=== PATIENT | female | born 1955 | race Caucasian/White ===

== ENCOUNTER 2024-02-07 06:43 | Day surgery (SDC) | payer MEDICARE, BC, SELFPAY ==
[2024-02-06 15:44] LABS: Anion Gap 3 (7-16); BUN/Creatinine Ratio 20 Ratio (12-20); Blood Urea Nitrogen 16 mg/dL (9-23); Calcium 9.2 mg/dL (8.3-10.6); Carbon Dioxide 31.7 mMol/L (20.0-31.0); Chloride 105 mMol/L (98-107); Creatinine (Component) 0.8 mg/dL (0.6-1.3); Glucose 95 mg/dL (74-106); Osmolality,Calculated 280 (275-295); Potassium 4.7 mMol/L (3.4-5.1); Sodium 140 mMol/L (136-145); eGFR > 60 See Note
[2024-02-06 15:45] LABS: Basophils # (Auto) 0.1 Thou/mm3 (0.0-0.2); Basophils % (Auto) 1 % (0-2.5); Eosinophils # (Auto) 0.2 Thou/mm3 (0.0-0.5); Eosinophils % (Auto) 2 % (0-10); Hematocrit 43.7 % (36.0-46.0); Immature Granulocytes % (Auto) 0 % (0-0); Immature Granulocytes Auto 0.02 Thou/mm3 (0.00-0.00); Lymphocytes # (Auto) 1.8 Thou/mm3 (1.0-4.8); Lymphocytes % (Auto) 23 % (10-50); Mean Corpuscular Volume 87 fL (80-100); Monocytes # (Auto) 0.8 Thou/mm3 (0.0-0.8); Monocytes % (Auto) 10 % (0-12); Neutrophils # (Auto) 5.1 Thou/mm3 (1.8-7.7); Neutrophils % (Auto) 64 % (37-80); Nucleated Red Blood Cell % 0 /100 WBC (0); Platelet Count 348 Thou/mm3 (140-440); RDW Standard Deviation 43.9 fL (36.4-46.3); White Blood Count 7.9 Thou/mm3 (3.6-11.0)
[2024-02-06 15:53] LABS: Partial Thromboplastin Time 25.7 Seconds (22.0-36.0); Prothrombin Time 10.8 Seconds (9.0-12.2)
[2024-02-07] VITALS (12 sets, daily range): BP systolic 132–164; BP diastolic 70–120; PULSE 73–97; RESP 14–20; TEMP 36.2–36.3; O2SAT 92–97; BMI 40.8
--- NOTE | 2024-02-07 13:23 | ESOP_ITS ---
RE: REECE MUELLER : 1955 DATE OF OPERATION: 02/07/2024 PROCEDURES PERFORMED: 1. Diagnostic left heart catheterization, selective coronary angiogram, left ventricular angiogram, CPT 05546. 2. Conscious sedation 30 minutes duration. 3. Ultrasound-guided access of the right radial artery. DIAGNOSES: Abnormal stress test and coronary artery disease. HISTORY AND INDICATIONS: The patient is a 68-year-old female with a past medical history of hypertension with recurrent episodes of chest tightness, shortness of breath, abnormal nuclear stress test and coronary angiogram on cardiac assessment. Recommend to assess if the patient is a candidate for coronary intervention and revascularization. DESCRIPTION OF PROCEDURE: The patient was brought to the cardiac catheterization laboratory where she was given 2 mg Versed and 100 mcg of fentanyl for sedation. Right radial approach was taken. Right radial artery was cannulated with micropuncture technique and a 6-Russian Glidesheath was introduced. Selective right and left coronary angiogram, left heart catheterization, LV angiogram performed by 5-Russian TIG-4 diagnostic catheter. The patient tolerated the procedure well. No complications. Coronary angiogram showed the following findings: Right coronary artery is large and dominant, gives off PDA and posterolateral branches, appeared normal. Left coronary system: Left main coronary artery is normal, left anterior desecnding artery appears normal, circumflex artery appears normal. Left ventricular pressure recorded to be 100/10, aortic pressure 100/70. No gradient across the aortic valve. Left ventricular angiogram showed normal left ventricular wall motion, ejection fraction 70%. SUMMARY OF FINDINGS: 1. Normal nonobstructive epicardial coronary arteries. 2. Normal left ventricular systolic function. RECOMMENDATIONS: The patient is reassured about the absence of significant obstructive coronary artery disease, excellent prognosis. Recommended to continue medical management and low-fat, low cholesterol diet. DT: 12:47:17 TT: 13:21:00 Ref: [id number] - TID: [id number]
== END 2024-02-07 11:25 | disposition home or self-care (01) ==
PROVIDERS: PCP Family Medicine; Referring Provider Internal Medicine Cardiovascular Disease; Visit Provider Internal Medicine Cardiovascular Disease
PROC: (CPT 93458; principal; 2024-02-07 07:30)
DX: I25.118 Atherosclerotic heart disease of native coronary artery with other forms of angina pectoris (principal); I10 Essential (primary) hypertension
CPT/HCPCS: 93458; 36415; 80048; 85025; 85610; 85730; 99152; A4649; C1769; C1887; C1894; J0171; J0461; J1643; J2250; J2310; J2371; J3010; J3490; Q9967; J1644; J2305

== ENCOUNTER 2024-03-05 15:32 | Emergency (ER) | payer MEDICARE, BC, SELFPAY ==
--- NOTE | 2024-03-05 | XR_ITS ---
Examination: MRI brain without intravenous contrast. Date and time of exam: March 05, 2024 8003 hours Indications: Onset dizziness episodes beginning 4 days ago Technique: Multiple axial and sagittal images of the brain obtained. Siemens high-resolution 1.5 Eva short bore scanners utilized. Sagittal sections, T1-weighted, TR 500, TE 14, are performed. Axial sections proton-density and T2-weighted have been obtained. Inversion recovery axial images, TR 9, 260, TE 111, TI 2500. Diffusion weighted images, axial sections, TR 4800, TE 128, B value 1000 Axial sections, ADC map, TR 4800, TE 128 Findings: Enlargement of the sella turcica is not present. The optic chiasm and infundibular are not remarkable. Prepontine and interpeduncular cisterns are not enlarged. There is no localized enlargement of the medulla or klaudia. Fourth ventricle and cerebellar tonsils appear normal in position. No subacute area of hemorrhage density is seen. Mass in the cerebellopontine angle region is not evident. Globes symmetrical. Orbital musculature including medial lateral rectus muscles do not exhibit abnormality. Diffusion-weighted images demonstrate no focus of restricted diffusion. Increased white matter signal mild Mass effect upon the ventricular system is not identified. Impression: Negative for acute hemorrhage, mass effect or midline shift No acute infarct Mild chronic microvascular white matter change Mild right mastoiditis
[2024-03-05 15:34] VITALS: BMI 41.5
--- NOTE | 2024-03-05 15:41 | XR_ITS ---
Examination: PA chest single view TECHNIQUE: Upright PA chest single view Exam date and time: March 05, 2024 1607 hours Comparison July 01, 2022 INDICATIONS: Dizziness today. FINDINGS: Reduced inspiratory effort Subsegmental atelectasis at the lung bases Normal heart size No lobar pneumonia or pulmonary edema IMPRESSION: Poor inspiratory effort chest x-ray
--- NOTE | 2024-03-05 15:41 | EKG_ITS ---
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
--- NOTE | 2024-03-05 15:41 | XR_ITS ---
Examination: CT brain head without contrast. 2-D sagittal coronal reconstructions Date and time of exam:March 05, 2024 1541 hours INDICATIONS: Dizziness nausea episodes beginning 4 days ago CTDI: vol (mGy):48.8 DLP: (mGycm):1017 Technique: Multiple CT axial sections of the brain have been obtained, 5 mm slice thickness. Contrast has not been administered. 2-D sagittal, coronal reconstructions have been obtained Low dose protocols were performed. One or more of the following dose reduction techniques were used; automated exposure control, adjustment of the mA and/or KV according to patient size, use of iterative reconstruction technique. Findings: No significant ventricular enlargement. Intra-axial or extra-axial hemorrhage density is not seen. No mass effect or midline shift Basal cisterns are not remarkable. Fourth ventricle is midline. Cranial vault intact. Impression: Negative for acute hemorrhage, mass effect or midline shift If symptoms persist, consider brain MRI follow-up, stroke protocol
--- NOTE | 2024-03-05 15:42 | PD.EDRME ---
Rapid Medical Screening Exam RME Arrival date/time: 03/05/24 15:32 This is a 68-year-old female who presents to the emergency department with acute dizziness for approximately 4 days. I have greeted and performed a focused initial assessment of this patient. Initial appropriate labs ordered at this time. A comprehensive ED assessment and evaluation of the patient and analysis of all test and completion of medical decision making process will be conducted by additional ED provider. Chief Complaint: Dizziness Time Seen by Provider: 03/05/24 15:41
[2024-03-05 15:43] VITALS: BMI 39.4
[2024-03-05 15:50] VITALS: BP 148/85; PULSE 92; RESP 19; TEMP 36.8; O2SAT 96
[2024-03-05 16:24] LABS: Basophils # (Auto) 0.1 Thou/mm3 (0.0-0.2); Basophils % (Auto) 1 % (0-2.5); Eosinophils # (Auto) 0.2 Thou/mm3 (0.0-0.5); Eosinophils % (Auto) 3 % (0-10); Hematocrit 47.9 % (36.0-46.0); Hemoglobin 15.6 g/dL (12.0-16.0); Immature Granulocytes % (Auto) 0 % (0-0); Immature Granulocytes Auto 0.01 Thou/mm3 (0.00-0.00); Lymphocytes # (Auto) 2.3 Thou/mm3 (1.0-4.8); Lymphocytes % (Auto) 30 % (10-50); Mean Corpuscular HGB Conc 32.6 g/dl (31.0-37.0); Mean Corpuscular Hemoglobin 28.1 pg (25.0-35.0); Mean Corpuscular Volume 86 fL (80-100); Monocytes # (Auto) 0.7 Thou/mm3 (0.0-0.8); Monocytes % (Auto) 9 % (0-12); Neutrophils # (Auto) 4.4 Thou/mm3 (1.8-7.7); Neutrophils % (Auto) 57 % (37-80); Nucleated Red Blood Cell % 0 /100 WBC (0); Platelet Count 314 Thou/mm3 (140-440); RDW Standard Deviation 44.2 fL (36.4-46.3); Red Blood Count 5.55 Miln/mm3 (4.00-5.20); White Blood Count 7.7 Thou/mm3 (3.6-11.0)
[2024-03-05] MEDS: MECLIZINE HCL 25 MG TABLET PO (16:44)
[2024-03-05 16:45] LABS: Alanine Aminotransferase 18 U/L (10-49); Albumin, Serum 4.6 gm/dL (3.4-4.8); Albumin/Globulin Ratio 1.8 (1.2-2.2); Alkaline Phosphatase 138 U/L (46-116); Anion Gap 6 (7-16); Aspartate Amino Transferase 22 U/L (0-34); BUN/Creatinine Ratio 21 Ratio (12-20); Bilirubin,Total 0.4 mg/dL (0.3-1.2); Blood Urea Nitrogen 17 mg/dL (9-23); Calcium 9.9 mg/dL (8.3-10.6); Calcium (Corrected) 9.9 mg/dL (8.5-10.1); Carbon Dioxide 31.6 mMol/L (20.0-31.0); Chloride 102 mMol/L (98-107); Creatinine (Component) 0.8 mg/dL (0.6-1.3); Estimated Creatinine Clearance 83.7 mL/min (>60); Globulin 2.6 gm/dL (2.3-3.5); Glucose 96 mg/dL (74-106); Osmolality,Calculated 280 (275-295); Sodium 140 mMol/L (136-145); Total Protein 7.2 gm/dL (5.7-8.2); Troponin I < 0.002 ng/mL (0.0-0.045); eGFR > 60 See Note
[2024-03-05 17:03] LABS: Partial Thromboplastin Time 25.4 Seconds (22.0-36.0)
[2024-03-05 17:15] LABS: Collection Type, Urine Clean Catch
[2024-03-05 17:22] LABS: Bacteria,Urine Rare; Bilirubin,Urine Negative (Negative); Blood,Urine Negative (Negative); Clarity,Urine Clear (Clear/Hazy); Color,Urine Lt-Yellow (Lt Yel-Yel); Glucose, Urine Negative (Negative); Ketones,Urine Negative (Negative); Leukocyte Esterase,Urine Positive (Negative); Nitrite,Urine Negative (Negative); Protein,Urine Negative (Neg - Trace); RBC,Urine < 1 /hpf (0-3); Squamous Epithelial Cell,Urine < 1 /hpf (0-5); Urobilinogen,Urine Negative mg/dL (0.0-1.0); WBC,Urine 2 /hpf (0-5)
[2024-03-05 17:25] LABS: Amphetamine/Methamp Scrn,U Negative (Negative); Barbiturate Screen,Urine Negative (Negative); Benzodiazepines Screen,Urine Positive (Negative); Benzoylecgonine Screen, Ur Negative (Negative); Fentanyl Screen,Urine Negative (Negative); Opiate Screen,Urine Positive (Negative); THC Screen,Urine Negative (Negative)
--- NOTE | 2024-03-05 19:18 | PC.NURSE ---
Patient refused Ativan PO. Patient already did MRI scan and stated she did not need it.
--- NOTE | 2024-03-05 19:59 | EDNOTE_ITS ---
<Statement entered by Iesha Brooke MD - 03/12/24 16:20> As co-signing physician, I was present and available for consult prn. I concur with the plan and care as documented by the midlevel provider. ED Dizzyness RME/HPI General Chief Complaint: Dizziness Stated Complaint: DIZZINESS FOR 4 DAYS/ LKW AT 2300 SATUR Time Seen by Provider: 03/05/24 15:41 Source: patient Arrival date/time: 03/05/24 15:32 This is a 68-year-old female significant past medical history of anxiety, hyperlipidemia, chronic anemia, migraines, presents to the emergency department with complaints of dizziness for approximately 1 week. She does report she has followed up with her PCP was prescribed meclizine however no significant improvement. Denies any focal neurodeficits no LOC no head injury no syncopal episode. No chest pain, no dyspnea. Mode of arrival: ambulatory Limitations: no limitations RME / HPI RME / HPI Narrative: 03/05/24 15:32 This is a 68-year-old female who presents to the emergency department with acute dizziness for approximately 4 days. I have greeted and performed a focused initial assessment of this patient. Initial appropriate labs ordered at this time. A comprehensive ED assessment and evaluation of the patient and analysis of all test and completion of medical decision making process will be conducted by additional ED provider. Related Data Home Medications ?Medication ?Instructions ?Recorded ?Confirmed alprazolam 1 mg tablet 1 mg PO QDAY PRN Anxiety 02/11/20 02/07/24 venlafaxine 150 mg 150 mg PO QDAY 02/11/20 02/07/24 capsule,extended release 24 hr (Effexor XR) aspirin 81 mg chewable tablet 81 mg PO QDAY 02/07/24 02/07/24 atorvastatin 10 mg tablet 10 mg PO QDAY 02/07/24 02/07/24 coQ10 (ubiquinol) 200 mg capsule 200 mg PO Q12H 02/07/24 02/07/24 dicyclomine 20 mg tablet 20 mg PO TID 02/07/24 02/07/24 ferrous sulfate 325 mg (65 mg 325 mg PO QDAY 02/07/24 02/07/24 iron) tablet (iron) gabapentin 300 mg capsule 300 mg PO TID 02/07/24 02/07/24 omega 1-rkb-bfb-fish oil 1,000 mg 1 cap PO QDAY 02/07/24 02/07/24 (120 mg-180 mg) capsule (Fish Oil) omeprazole 40 mg capsule,delayed 40 mg PO QDAY 02/07/24 02/07/24 release sumatriptan succinate 50 mg tablet 50 mg PO Q2H PRN Migraine Headache 02/07/24 02/07/24 (Imitrex) Previous Rx's ?Medication ?Instructions ?Recorded acetaminophen 300 mg-codeine 30 mg 1 tab PO Q6H PRN pain #20 tabs 07/01/22 tablet amoxicillin 875 mg-potassium 1 tab PO BID 10 days #20 tabs 03/05/24 clavulanate 125 mg tablet fluconazole 150 mg tablet 150 mg PO Q3D 2 doses #2 tabs 03/05/24 Allergies Allergy/AdvReac Type Severity Reaction Status Date / Time adhesive tape Allergy Severe Rash Verified 03/05/24 15:36 NSAIDS (Non-Steroidal Allergy Severe Hives Verified 03/05/24 15:36 Anti-Inflamma Review of Systems Review of Systems Systems Reviewed: All systems reviewed, normal except as documented Narrative Review of Systems: Gen: No fever, no chills, no weight loss, +dizziness EYES: No discharge, no visual changes, no pain HEENT: No ear pain, no congestion, no sore throat PULM: No shortness of breath, no cough, no congestion CV: No chest pain, no dyspnea on exertion, no palpitations GI: No nausea, no vomiting, no diarrhea, no pain, no constipation : No frequency, no urgency,? no dysuria Musc/skel: No joint pain, no back pain Skin: No rash? ED Exam General Limitations: Present no limitations General appearance: Present alert and in no apparent distress Head Head exam: Present atraumatic Eye Eye exam: Present normal appearance, PERRL and EOMI ENT ENT exam: Present normal exam, normal oropharynx and mucous membranes moist Neck Neck exam: Present normal inspection, full ROM and trachea midline Chest Chest inspection: Present normal inspection and symmetric chest wall rise Respiratory Respiratory exam: Present normal lung sounds bilaterally Cardiovascular Cardiovascular exam: Present regular rate, normal rhythm and normal heart sounds Abdominal Exam Abdominal exam: Present soft and normal bowel sounds Extremities Exam Extremities exam: Present normal inspection and full ROM Back Exam Back exam: Present normal inspection and full ROM Neurological Exam Neurological exam: Present alert, oriented X3 and CN II-XII intact Psychiatric Psychiatric exam: Present normal affect and normal mood Skin Skin exam: Present warm, dry, intact and normal color Course Quality Measures none Orders Category Date Time Status Bedside Blood Glucose NOW Care 03/05/24 15:41 Completed Airport Ramp Agent STAT Care 03/05/24 15:41 Completed EKG (ED ONLY) *Do not use* NOW Care 03/05/24 15:41 Completed MRI Screening NOW Care 03/05/24 17:[address] head/brain wo con Stat Exams 03/05/24 15:41 Completed EKG (ED Only) Stat Exams 03/05/24 15:41 Draft MR head/brain wo con Stat Exams 03/05/24 Completed XR chest 1V portable Stat Exams 03/05/24 15:41 Completed CBC Stat Lab 03/05/24 16:14 Completed Comprehensive Metabolic Panel Stat Lab 03/05/24 16:14 Completed Drug Screen,Urine Stat Lab 03/05/24 16:20 Completed Partial Thromboplastin Time Stat Lab 03/05/24 16:14 Completed Prothrombin Time with INR Stat Lab 03/05/24 16:14 Completed Troponin I Stat Lab 03/05/24 16:14 Completed Urinalysis Stat Lab 03/05/24 16:20 Completed LORazepam [Ativan] Med 03/05/24 18:23 Discontinued 1 mg PO X1 ONE Meclizine HCl [Antivert] Med 03/05/24 15:41 Discontinued 25 mg PO X1 ONE Vital Signs Vital signs: Vital Signs Temperature 98.2 F 03/05/24 15:50 Pulse Rate 92 03/05/24 15:50 Respiratory Rate 19 03/05/24 15:50 Blood Pressure 148/85 H 03/05/24 15:50 Pulse Oximetry (%) 96 03/05/24 15:50 Oxygen Delivery Method Room Air 03/05/24 15:50 Dizziness MDM Narrative MDM Narrative:: This is a 68-year-old female history of anxiety, hyperlipidemia presents to the emergency department with intermittent dizziness for 1 week. In ED she is awake and alert stable gait. Vital signs stable. Labs are reassuring. Patient did have a CT with negative mass acute hemorrhage. Went ahead and obtained a MRI of brain which demonstrated mastoiditis. No acute stroke or infarcts noted. After discussing the patient's labs and imaging with patient and daughter I do feel safe in sending the patient home should be treated with antibiotics me kaitlin can take allergy medication or Sudafed for symptoms. Strictly advised to follow-up with her PCP in 2 days and to return to the emergency department this any worsening symptoms or change in condition. Patient data External records reviewed:: [facility] previous records Clinical information provided by:: patient Social determinants that could affect healthcare access:: none Patient has the following chronic illnesses:: Hyperlipedemia, Anxiety How is presenting disease/condition affected by chronic disease/condition?: uneffected by Evaluation data The following diagnostics were reviewed and interpreted by me:: lab results, radiology exam(s) and EKG tracing(s) Lab and/or radiology exams considered but not ordered:: yes Interpretation Summary: Examination: MRI brain without intravenous contrast. Date and time of exam: March 05, 2024 8003 hours Indications: Onset dizziness episodes beginning 4 days ago Technique: Multiple axial and sagittal images of the brain obtained. Siemens high-resolution 1.5 Eva short bore scanners utilized. Sagittal sections, T1-weighted, TR 500, TE 14, are performed. Axial sections proton-density and T2-weighted have been obtained. Inversion recovery axial images, TR 9, 260, TE 111, TI 2500. Diffusion weighted images, axial sections, TR 4800, TE 128, B value 1000 Axial sections, ADC map, TR 4800, TE 128 Findings: Enlargement of the sella turcica is not present. The optic chiasm and infundibular are not remarkable. Prepontine and interpeduncular cisterns are not enlarged. There is no localized enlargement of the medulla or klaudia. Fourth ventricle and cerebellar tonsils appear normal in position. No subacute area of hemorrhage density is seen. Mass in the cerebellopontine angle region is not evident. Globes symmetrical. Orbital musculature including medial lateral rectus muscles do not exhibit abnormality. Diffusion-weighted images demonstrate no focus of restricted diffusion. Increased white matter signal mild Mass effect upon the ventricular system is not identified. Impression: Negative for acute hemorrhage, mass effect or midline shift No acute infarct Mild chronic microvascular white matter change Mild right mastoiditis Examination: CT brain head without contrast. 2-D sagittal coronal reconstructions Date and time of exam:March 05, 2024 1541 hours INDICATIONS: Dizziness nausea episodes beginning 4 days ago CTDI: vol (mGy):48.8 DLP: (mGycm):1017 Technique: Multiple CT axial sections of the brain have been obtained, 5 mm slice thickness. Contrast has not been administered. 2-D sagittal, coronal reconstructions have been obtained Low dose protocols were performed. One or more of the following dose reduction techniques were used; automated exposure control, adjustment of the mA and/or KV according to patient size, use of iterative reconstruction technique. Findings: No significant ventricular enlargement. Intra-axial or extra-axial hemorrhage density is not seen. No mass effect or midline shift Basal cisterns are not remarkable. Fourth ventricle is midline. Cranial vault intact. Impression: Negative for acute hemorrhage, mass effect or midline shift If symptoms persist, consider brain MRI follow-up, stroke protocol Exam date and time: March 05, 2024 1607 hours Comparison July 01, 2022 INDICATIONS: Dizziness today. FINDINGS: Reduced inspiratory effort Subsegmental atelectasis at the lung bases Normal heart size No lobar pneumonia or pulmonary edema IMPRESSION: Poor inspiratory effort chest x-ray Medications / Prescriptions Medications or Prescriptions considered but not ordered:: no Medication administrations:: Medication Administration History Discontinued Medications Lorazepam (Lorazepam 0.5 Mg Tablet) 1 mg PO X1 ONE Stop: 03/05/24 18:24 Last Admin: 03/05/24 19:17 Dose: Not Given Documented By: Non-Admin Reason: Patient Refused Meclizine HCl (Meclizine Hcl 25 Mg Tablet) 25 mg PO X1 ONE Stop: 03/05/24 15:42 Last Admin: 03/05/24 16:44 Dose: 25 mg Documented By: all medications administered and effective Consultations Consultation(s) initiated? (list below): No Diagnosis Dizziness Differential Diagnosis: adverse reaction to drug, benign paroxysmal positional vertigo, orthostatic hypotension and other ( sinusitis, mastoiditis) Most likely diagnosis given after review of the tests above:: mastoiditis Admission Indicated Admission indicated?: not indicated Admission Request Was there a request for admission?: No Disposition Plan Disposition Plan: Discharge Discharge Attestation Discharge Attestation: The patient and all family members were given an opportunity to ask questions and understood the discharge instructions. Discharge instructions specifically effects, indications for sooner follow up or return to the emergency department, and the expected course of current diagnosis. Patient condition: Stable Discharge Plan Plan Patient Disposition: HOME (Self Care) Patient condition on transfer: Stable Prescriptions/Referrals Prescriptions/Med Rec: New amoxicillin-pot clavulanate 875-125 mg tablet 1 tab PO BID 10 Days Qty: 20 0RF fluconazole 150 mg tablet 150 mg PO Q3D 0 Days Qty: 2 0RF No Action venlafaxine [Effexor XR] 150 mg capsule,extended release 24hr 150 mg PO QDAY alprazolam 1 mg tablet 1 mg PO QDAY PRN (Reason: Anxiety) atorvastatin 10 mg Tablet 10 mg PO QDAY sumatriptan succinate [Imitrex] 50 mg Tablet 50 mg PO Q2H PRN (Reason: Migraine Headache) Rx Instructions: do not exceed 4 doses per 24 hrs omeprazole 40 mg Capsule,Delayed Release(Dr/Ec) 40 mg PO QDAY dicyclomine 20 mg Tablet 20 mg PO TID ferrous sulfate [iron] 325 mg (65 mg iron) Tablet 325 mg PO QDAY gabapentin 300 mg Capsule 300 mg PO TID aspirin 81 mg Tablet,Chewable 81 mg PO QDAY coQ10 (ubiquinol) 200 mg Capsule 200 mg PO Q12H omega 7-qgj-upn-fish oil [Fish Oil] 1,000 (120-180) mg Capsule 1 cap PO QDAY acetaminophen-codeine 300-30 mg tablet 1 tab PO Q6H PRN (Reason: pain) Qty: 20 0RF Referrals: Mart Cueto MD [Primary Care Provider] - In 1 week Problem List Clinical Impression: Dizziness, Acute mastoiditis of both sides without complications Patient/Caregiver Discharge Instructions Education Materials: Common Middle Ear Problems, Dizziness Fainting Poss Causes Additional Instructions: please start antibiotics as directed please make a follow-up appointment with your primary doctor Please return to the emergency department this any worsening symptoms change in condition. Print Language: Portuguese Stand Alone Forms: Steph Award Info., Patient Portal Info Letter PA/ENGRAVING PATTERNMAKER Supervising Physician PA/KIP Supervising Physician: Dr. Nye
[2024-03-05 20:08] VITALS: BP 163/90; PULSE 92; RESP 18; TEMP 36.6; O2SAT 97
== END 2024-03-05 20:30 | disposition home or self-care (01) ==
PROVIDERS: Nurse Practitioner Primary Care; Emergency Provider Emergency Medicine; PCP Family Medicine
DX: H70.003 Acute mastoiditis without complications, bilateral (principal); R94.31 Abnormal electrocardiogram [ECG] [EKG]; R42 Dizziness and giddiness; R11.0 Nausea
CPT/HCPCS: 36415; 70450; 70551; 71045; 80053; 80307; 81001; 84484; 85025; 85610; 85730; 93005; 99284; A9270

== ENCOUNTER → 2024-05-12 | Outpatient (CLI) | payer MEDICARE, BC, SELFPAY ==
--- NOTE | 2024-05-12 13:28 | XR_ITS ---
Examination: Sinus series 3 views Technique: Mauro Conte lateral sinus series 3 views Exam date and time: 04/14/2024 1400 hrs. Indications: Sinus pressure and pain 2 months Findings: Mild opacity frontal ethmoid air cells, maxillary antra sphenoid air cells No fluid levels Impression: Chronic sinusitis
== END | disposition home or self-care (01) ==
LOC: CDIM 13:08
PROVIDERS: PCP Family Medicine; Referring Provider Nurse Practitioner Family; Visit Provider Nurse Practitioner Family
DX: J32.9 Chronic sinusitis, unspecified (principal)
CPT/HCPCS: 70220

== ENCOUNTER → 2025-02-10 | Outpatient (CLI) | payer MEDICARE, BC, SELFPAY ==
[2025-02-10 13:23] LABS: Basophils # (Auto) 0.1 Thou/mm3 (0.0-0.2); Basophils % (Auto) 1 % (0-2.5); Eosinophils # (Auto) 0.2 Thou/mm3 (0.0-0.5); Eosinophils % (Auto) 4 % (0-10); Hematocrit 46.1 % (36.0-46.0); Hemoglobin 14.3 g/dL (12.0-16.0); Immature Granulocytes Auto 0.01 Thou/mm3 (0.00-0.00); Lymphocytes # (Auto) 1.4 Thou/mm3 (1.0-4.8); Lymphocytes % (Auto) 23 % (10-50); Mean Corpuscular HGB Conc 31.0 g/dl (31.0-37.0); Mean Corpuscular Hemoglobin 27.9 pg (25.0-35.0); Mean Corpuscular Volume 90 fL (80-100); Monocytes # (Auto) 0.6 Thou/mm3 (0.0-0.8); Monocytes % (Auto) 10 % (0-12); Neutrophils # (Auto) 3.7 Thou/mm3 (1.8-7.7); Neutrophils % (Auto) 63 % (37-80); Nucleated Red Blood Cell # 0.00 Thou/mm3 (0.00-0.00); Nucleated Red Blood Cell % 0 /100 WBC (0); Platelet Count 374 Thou/mm3 (140-440); RDW Standard Deviation 46.1 fL (36.4-46.3); Red Blood Count 5.12 Miln/mm3 (4.00-5.20); White Blood Count 6.0 Thou/mm3 (3.6-11.0)
[2025-02-10 13:29] LABS: Glucose Estimated Average 123 mg/dL (80-131); Hemoglobin A1C 5.9 % Hgb (4.8-6.0)
[2025-02-10 13:33] LABS: Iron 96 mcg/dL (50-170)
[2025-02-10 13:36] LABS: Vitamin B12 530 pg/mL (211-911); Vitamin D 25 Hydroxy Total 52.2 ng/mL (7.3-40.2)
[2025-02-10 13:43] LABS: Alanine Aminotransferase 19 U/L (10-49); Albumin, Serum 4.5 gm/dL (3.4-4.8); Albumin/Globulin Ratio 1.7 (1.2-2.2); Alkaline Phosphatase 141 U/L (46-116); Anion Gap 11 (7-16); Aspartate Amino Transferase 26 U/L (0-34); BUN/Creatinine Ratio 14 Ratio (12-20); Bilirubin,Total 0.5 mg/dL (0.3-1.2); Blood Urea Nitrogen 11 mg/dL (9-23); Calcium 9.5 mg/dL (8.3-10.6); Calcium (Corrected) 9.5 mg/dL (8.5-10.1); Carbon Dioxide 30.3 mMol/L (20.0-31.0); Cardiac Risk Estimate 2.8 RATIO (3.7-5.6); Chloride 107 mMol/L (98-107); Cholesterol 210 mg/dL (132-200); Creatinine (Component) 0.8 mg/dL (0.6-1.3); Globulin 2.6 gm/dL (2.3-3.5); Glucose 114 mg/dL (74-106); HDL Cholesterol 74 mg/dL (40-60); LDL Cholesterol,Calculated 105 mg/dL (0-130); Osmolality,Calculated 294 (275-295); Potassium 4.5 mMol/L (3.4-5.1); Sodium 148 mMol/L (136-145); Thyroid Stimulating Hormone 2.58 uIU/mL (0.55-4.78); Total Protein 7.1 gm/dL (5.7-8.2); Triglycerides 155 mg/dL (30-150); eGFR > 60 See Note
== END | disposition home or self-care (01) ==
LOC: COPL 11:57
PROVIDERS: PCP Family Medicine; Referring Provider Nurse Practitioner Family; Visit Provider Nurse Practitioner Family
DX: E55.9 Vitamin D deficiency, unspecified (principal); Z98.84 Bariatric surgery status; E78.2 Mixed hyperlipidemia; R73.03 Prediabetes
CPT/HCPCS: 36415; 80053; 80061; 82306; 82607; 83036; 83540; 84443; 85025

== ENCOUNTER → 2025-02-16 | Outpatient (CLI) | payer MEDICARE, BC, SELFPAY ==
--- NOTE | 2025-02-16 14:15 | XR_ITS ---
Examination: Screening digital mammography, bilateral Computer aided detection 3-D breast Tomosynthesis, bilateral Date and time of exam: February 16, 2025, 1404 hours, compared to mammograms dating to July 26, 2021 Indication: Screening Technique: Nonmagnified MLO, CC views of the breasts to been obtained, reconstructed from 3-D Tomosynthesis images. R2 computer aided detection program utilized for evaluation of suspicious masses and/or abnormal calcifications. 3-D Tomosynthesis images obtained. Findings: Scattered areas of fibroglandular density. Benign calcifications. No multiple suspicious masses Impression: BI-RADS category II: Benign Findings. Recommend 1 year follow-up mammogram.
== END | disposition home or self-care (01) ==
LOC: CDIM 13:55
PROVIDERS: Referring Provider Nurse Practitioner Family; Visit Provider Nurse Practitioner Family
DX: Z12.31 Encounter for screening mammogram for malignant neoplasm of breast (principal); R92.323 Mammographic fibroglandular density, bilateral breasts; R92.1 Mammographic calcification found on diagnostic imaging of breast
CPT/HCPCS: 77063; 77067